=== PATIENT | female | born 1965 | race Caucasian/White ===

== ENCOUNTER 2022-01-02 22:37 | Emergency (ER) | payer MEDICARE, MEDICAID, SELFPAY ==
[2022-01-02] VITALS (7 sets, daily range): BP systolic 133–155; BP diastolic 63–79; PULSE 75–92; RESP 14–24; TEMP 36.2; O2SAT 96–100
--- NOTE | ~2022-01-02 | CT_ITS ---
EXAMINATION: CT facial & cervical spine wo EXAM DATE: 01/02/2022 23:09 INDICATION: Facial injury. Neck pain. TECHNIQUE: Spiral CT of the facial bones was acquired in the axial plane. Coronal reformatted images were also reviewed. Spiral CT of the cervical spine was performed without contrast. Axial images we re reviewed. Coronal and sagittal reformatted images were also reviewed. The dose-length product (DL P) for this examination was 243.14 mGy-cm. The exposure was tailored according to patient size, and iterative reconstruction (ASIR) was used as additional dose reduction technique. There is no prior s tudy for comparison. FINDINGS: FACIAL CT: There are no displaced acute nasal bone fractures. There is small amount of gas external to the right nasal bone which does raise possibility of nondisplaced fracture. The mandible, sinuses and orbits are intact. The orbits, globes and extraocular muscles are unremarkable. Mild mucoperi osteal thickening. There is laceration over the nasal bridge. There is fluid within the nasal cavity and mild ethmoid and maxillary periosteal disease. CERVICAL CT: There is no evidence of acute cervical fracture. The odontoid process is intact. Pre-d ens space is normal. Prevertebral soft tissue is normal. There are no soft tissue abnormalities herber ntified. There is no disc space widening or traumatic vertebral body subluxation suspected. Vertebr al body and disc heights are well-maintained. A detailed level by level evaluation of spondylosis c an be added as addendum if requested. IMPRESSION: 1. Nasal bridge laceration and small amounts of gas superficial to right nasal bone; can't exclude n ondisplaced nasal bone fracture. 2. Small amount of nasal cavity, sinus fluid and mild periosteal thickening. Reviewed, dictated and finalized at location A. IMPRESSION: 1. Nasal bridge laceration and small amounts of gas superficial to right nasal bone; can't exclude nondisplaced nasal bone fracture. 2. Small amount of nasal cavity, sinus fluid and mild periosteal thickening.
--- NOTE | ~2022-01-02 | CT_ITS ---
EXAMINATION: CT brain wo con EXAM DATE: 01/02/2022 23:09 INDICATION: Head injury. TECHNIQUE: Spiral CT of the head was performed without contrast. Axial, coronal and sagittal images were reviewed. The dose-length product (DLP) for this examination was 605.33 mGy-cm. The exposure w as tailored according to patient size, and iterative reconstruction (ASIR) was used as additional dos e reduction technique. There is no prior study for comparison. FINDINGS: There is an old lacunar infarction in the left gangliocapsular infarction there are punctat e old right caudate head and internal capsular lacunar infarctions. There is no acute intraparenchyma l hemorrhage. No evidence of intraparenchymal brain mass lesion. No evidence of acute infarction. Please note that initial head CT has limited sensitivity for small or acute infarctions. Mild microa ngiopathy and cerebral atrophy. There is periventricular and subcortical hypodensity, nonspecific bu t probably related to small vessel ischemic disease. There is prominence of the sulci and ventricle s related to cerebral atrophy. There is intracranial carotid arteriosclerosis. There are no extra- axial collections. There is no mass effect or midline shift. The orbits are unremarkable. Soft tis maureen is unremarkable. Mild mucoperiosteal thickening. IMPRESSION: 1. Old lacunar infarctions. 2. Chronic age related findings. Reviewed, dictated and finalized at location A.
--- NOTE | 2022-01-02 23:39 | ED.FALL ---
HPI - Fall General Chief Complaint: Fall Stated Complaint: fall from bed onto face Time Seen by Provider: 01/02/22 23:19 Source: patient and RN notes reviewed Mode of arrival: EMS Limitations: no limitations History of Present Illness HPI Narrative: 56-year-old female history of CVA presenting to the emergency department from a local longterm after having a fall from bed. Patient states she was reaching for the fan in the room when she rolled too far causing herself to fall from bed and landed on her right side and strike her face. Patient denies any loss consciousness. Related Data Home Medications Medication Instructions Recorded Confirmed ascorbic acid (vitamin C) 500 mg PO DAILY 01/02/22 calcitriol 0.25 mcg PO DAILY 01/02/22 escitalopram oxalate 5 mg PO DAILY 01/02/22 famotidine 20 mg PO BID 01/02/22 metoprolol tartrate 12.5 mg PO BID 01/02/22 [id number]-vit K tablet PO 01/02/22 [Adults Multivitamin] tramadol 50 mg PO Q4H PRN 01/02/22 Allergies Allergy/AdvReac Type Severity Reaction Status Date / Time ampicillin Allergy Other Verified 01/02/22 22:43 codeine Allergy Other Verified 01/02/22 22:43 ibuprofen Allergy Other Verified 01/02/22 22:43 nitrofurantoin Allergy Other Verified 01/02/22 22:43 [From Macrobid] Penicillins Allergy Other Verified 01/02/22 22:43 Sulfa (Sulfonamide Allergy Other Verified 01/02/22 22:43 Antibiotics) Review of Systems Review of Systems: CONSTITUTIONAL: Denies fever, chills, or sweats. EYES: Denies visual changes, redness, or discharge. ENT: Denies rhinorrhea, congestion, sore throat, or otalgia. CARDIOVASCULAR: Denies chest pain, palpitations, or edema. RESPIRATORY: Denies cough or dyspnea. GASTROINTESTINAL: Denies abdominal pain, nausea, vomiting, or diarrhea. GENITOURINARY: Denies dysuria or hematuria. SKIN: Laceration to nose MUSCULOSKELETAL: Denies back pain, joint pain, or myalgia. NEUROLOGIC: Denies headache, numbness, or weakness. All systems reviewed & are unremarkable except as noted in HPI and below Exam Narrative: APPEARANCE: Well appearing, no pain, no distress, well-nourished. HEAD: normocephalic, atraumatic. EYES: PERRLA/EOMI, conjunctivae clear. NOSE: Well approximated superficial laceration to nasal bridge, nasal swelling NECK: Supple. No adenopathy, no masses. RESPIRATORY: Airway patent, respirations nonlabored. Clear to auscultation bilaterally, no rales, rhonchi, wheezing. CARDIOVASCULAR: Regular rate and rhythm without murmurs rubs or gallops. ABDOMINAL: Soft, nontender, nondistended, normal bowel sounds MUSCULOSKELETAL: Moves all extremities. Strength/ROM intact, No edema, No calf tenderness. NEURO: Alert. Cranial nerves II through XII intact. Chronic right-sided deficit, no acute change SKIN: Warm, dry. Normal Color Course Course Emergency Course: Head CT, facial CT and cervical spine CT were negative for acute abnormality. Superficial laceration was cleansed and repaired with Steri-Strips. Patient was updated the results of her work-up. Patient was comfortable with the plan for discharge back to her care facility. Vital Signs Vital signs: Vital Signs Temperature 97.2 F L 01/02/22 22:37 Pulse Rate 75 01/02/22 22:37 Respiratory Rate 14 01/02/22 22:37 Blood Pressure 155/79 H 01/02/22 22:37 Pulse Oximetry 96 01/02/22 22:37 Temperature 98.0 F 01/03/22 02:02 Pulse Rate 79 01/03/22 04:17 Respiratory Rate 20 01/03/22 04:17 Blood Pressure 122/57 L 01/03/22 04:17 Pulse Oximetry 97 01/03/22 04:17 Procedures Laceration Laceration 1: Time: 23:58 Site: face Size (cm): 2 Description: linear Pre-repair: wound explored and irrigated ====== Skin Level ====== Skin layer closed with: steri strips ====== Subcutaneous Layer ====== ====== Muscle Layer ====== ====== Tendon Layer ====== MDM - Fall Imaging Data Radiologist's
[2022-01-03] VITALS (10 sets, daily range): BP systolic 120–122; BP diastolic 57–58; PULSE 75–97; RESP 17–22; TEMP 36.7; O2SAT 96–97
[2022-01-03] MEDS: traMADol HCL (*CRX) 50 MG TABLET PO (03:44)
== END 2022-01-03 04:19 ==
PROVIDERS: Emergency Provider Emergency Medicine
DX: S01.21XA Laceration without foreign body of nose, initial encounter (principal); S09.90XA Unspecified injury of head, initial encounter; W06.XXXA Fall from bed, initial encounter
CPT/HCPCS: 70450; 70486; 72125; 99284; A9270